=== PATIENT | male | born 1945 | race Caucasian/White ===

== ENCOUNTER → 2019-05-09 | Outpatient (CLI) | payer MEDICARE ==
--- NOTE | 2019-05-09 12:45 | MR ---
EXAMINATION TYPE: MR lumbar spine wo con DATE OF EXAM: 05/09/2019 COMPARISON: None HISTORY: Spinal stenosis, lumbar region TECHNIQUE: Multiplanar, multisequence images of the lumbar spine were acquired. FINDINGS: The lumbar spine vertebral bodies maintain normal vertebral body heights and alignment. Mul tilevel disc desiccation is seen. Conus medullaris is unremarkable in signal and morphology. Bone mar row signal is within normal limits. Generalized mild atrophy of the paraspinal musculature is noted. T12-L1: There is a right eccentric disc bulge with annular tear without spinal canal stenosis or neur al foraminal narrowing. L1-L2: There is a broad-based disc bulge and mild facet arthropathy without spinal canal stenosis nor neural foraminal narrowing. L2-L3: There is a broad-based disc bulge, ligamentum flavum buckling and facet arthropathy resulting in mild bilateral neural foraminal narrowing, left slightly greater than right without spinal canal s tenosis. L3-L4: There is a small central disc herniation with 3 mm caudal extrusion and left paracentral annul ar tear. This is superimposed upon a broad-based disc bulge with facet arthropathy and ligamentum fla vum buckling creating moderate bilateral neural foraminal narrowing. This also creates overall modera te spinal canal stenosis with narrowing and both in anterior posterior dimension and transverse dimen ivanna. Disc abuts the nerve roots. L4-L5: There is a large broad-based disc bulge, facet arthropathy and ligamentum flavum buckling crea ting moderate bilateral neural foraminal narrowing and mild spinal canal stenosis in a transverse dim ension. The disc abuts the exiting nerve roots. L5-S1: There is a very small central disc herniation and small projecting osteophyte of the inferior endplate of L5 without spinal canal stenosis or neural foraminal narrowing. Mild facet arthropathy is seen. IMPRESSION: 1. Small central disc herniation at L3-L4 with 3 mm caudal disc extrusion in combination with facet a rthropathy and ligamentum flavum buckling create moderate bilateral neural from narrowing and moderat e spinal canal stenosis. There is contact of the disc with the exiting L3 nerve roots. 2. Large broad-based disc bulge at L4-L5 in combination with facet hypertrophy and ligamentum flavum buckling create mild spinal canal stenosis and moderate bilateral neural foraminal narrowing. The dis c also abuts the exiting L4 nerve roots at this level. 3. Moderate multilevel degenerative disc disease within the remaining lumbar spine vertebral levels. Very small disc herniation is also seen at L5-S1 without spinal canal stenosis or neural foraminal na rrowing.
== END | disposition home or self-care (01) ==
LOC: RADMRIMAIN 10:47
DX: M48.061 Spinal stenosis, lumbar region without neurogenic claudication (principal); M51.26 Other intervertebral disc displacement, lumbar region; M51.36 Other intervertebral disc degeneration, lumbar region
CPT/HCPCS: 72148

== ENCOUNTER → 2020-11-13 | Outpatient (CLI) | payer MEDICARE ==
[2020-11-13 09:09] LABS: Basophils # (A) 0.1 k/uL (0-0.2); Basophils % (A) 1 %; Eosinophils # (A) 0.2 k/uL (0-0.7); Eosinophils % (A) 3 %; HCT 49.2 % (39.0-53.0); HGB 16.4 gm/dL (13.0-17.5); Lymphocytes # (A) 1.5 k/uL (1.0-4.8); Lymphocytes % (A) 23 %; MCH 30.2 pg (25.0-35.0); MCHC 33.3 g/dL (31.0-37.0); MCV 90.8 fL (80.0-100.0); Mean Platelet Volume 7.9; Monocytes # (A) 0.3 k/uL (0-1.0); Monocytes % (A) 5 %; Neutrophils # (A) 4.1 k/uL (1.3-7.7); Neutrophils % (A) 65 %; Platelet Count 162 k/uL (150-450); RBC 5.42 m/uL (4.30-5.90); WBC 6.3 k/uL (3.8-10.6)
[2020-11-13 12:34] LABS: Glucose 2 Hour 114 mg/dL
[2020-11-13 15:13] LABS: African American GFR (CKD) 74.7 (60.0-200.0); Non-African American GFR(CKD) 64.4 (60.0-200.0)
[2020-11-14 13:07] LABS: Albumin 3.91 g/dL (3.80-4.90); Gamma Globulin 0.68 g/dL (0.70-1.50)
== END | disposition home or self-care (01) ==
LOC: LABWHC1 08:34
PROVIDERS: ATTEND Psychiatry & Neurology Neurology
DX: G62.9 Polyneuropathy, unspecified (principal)
CPT/HCPCS: 36415; 82175; 82565; 82570; 82607; 82947; 82950; 83655; 83825; 84165; 84207; 84425; 84443; 84520; 85025; 86334

== ENCOUNTER → 2020-12-03 | Outpatient (CLI) | payer MEDICARE ==
--- NOTE | 2020-12-03 07:28 | MR ---
EXAMINATION TYPE: MR cspine/lspine wo con DATE OF EXAM: 12/03/2020 COMPARISON: MRI lumbar spine May 09, 2019 HISTORY: Paresthesia of bilateral lower extremity, imbalance, left upper extremity incoordination, al l per order. Back pain causing numbness or neuropathy in both feet per patient TECHNIQUE: Multiplanar, multisequence imaging of the cervical and lumbar spine are performed without IV contrast. FINDINGS: Cervical spine: Sagittal images of the cervical spine show the craniocervical junction to appear within normal limits . The cervical and upper thoracic spinal cord is normal in course, caliber, and signal. Slight grade 1 listhesis C6 on C7. The vertebral body heights are normal. Moderate disc space narrowing C5-C6 l evel. Mild disc space narrowing C6-C7 level. Mild multilevel anterior spurring. Heterogeneous Modic t ype II endplate changes anterior C6-C7 level. Axial images show C2-C3 level to appear within normal limits. Axial images at C3-C4 level show uncovertebral facet degenerative changes bilaterally greater on the left causing moderate to advanced left and mild to moderate right-sided neural foraminal narrowing. Axial images at C4-C5 level showed broad based central disc protrusion effacing anterior thecal sac n early up to ventral surface of spinal cord with additional foraminal spur disc components causing josephine rly moderate bilateral neural foraminal narrowing. Axial images at C5-C6 level shows a broad-based spur disc complex effacing anterior thecal sac and ca using moderate bilateral neural foraminal narrowing. Axial images at C6-C7 level showed broad based right paracentral disc protrusion effacing anterolater al thecal sac and causing mild bilateral neural foraminal narrowing. Axial images at C7-T1 level are within normal limits. IMPRESSION: Spondylolisthesis C6-C7 level. Multilevel degenerative changes at C3-C4 through C6-C7 lev el as detailed above. Lumbar spine: Sagittal images of the lumbar spine show vertebral body heights to remain satisfactory. Slight grade 1 retrolisthesis of L2 on L3 and L3 on L4 redemonstrated. Multilevel disc desiccation again seen. Th e conus medullaris is stable in position and signal ending inferior T12 level. [id number] multi level spurring with heterogeneity throughout the bone marrow. Axial images show T12-L1 level to appear within normal limits. Axial images at L1-L2 level redemonstrates stable mild broad disc bulge minimally effacing the anteri or thecal sac. Axial images at L2-L3 level demonstrate moderate broad-based posterior disc protrusion effacing anter ior thecal sac and mild facet arthropathy bilaterally causing mild bilateral neural foraminal narrowi ng. No significant change from prior. Axial images at L3-L4 level demonstrates spondylolisthesis with moderate facet arthropathy and ligame ntum flavum hypertrophy effacing posterolateral thecal sac greater on the right. There is moderate br oad disc bulge with right paracentral disc protrusion component effacing the anterior thecal sac. The re is moderate to advanced right-sided neural foraminal narrowing and mild/moderate left-sided neural foraminal narrowing redemonstrated. Slight interval degenerative progression noted at this level. Axial images at L4-L5 level redemonstrate moderate facet degenerative changes bilaterally. There is m oderate to large broad-based posterior disc protrusion redemonstrated. There is mild effacement of th e anterior thecal sac. There is moderate bilateral neural foraminal narrowing. Disc abuts the exiting right L4 nerve sagittal image 13 similar to prior and to lesser degree inferior aspect left L4 nerve sagittal image 2 similar to the prior. Axial images at L5-S1 level shows central disc protrusion and annular tear with mild to moderate face t arthropathy bilaterally. Spinal canal preserved. Patent bilateral neural foramina. Central thin-walled parapelvic cyst suspected in the left kidney similar to prior. IMPRESSION: Multilevel of spondylolisthesis and degenerative changes greatest in the mid to lower lum bar spine as detailed above. Some interval degenerative progression thought present at L3-L4 level.
== END | disposition home or self-care (01) ==
LOC: RADMRIMAIN 06:05
PROVIDERS: ATTEND Psychiatry & Neurology Neurology
DX: M43.12 Spondylolisthesis, cervical region (principal); M43.16 Spondylolisthesis, lumbar region; M47.812 Spondylosis without myelopathy or radiculopathy, cervical region; M47.816 Spondylosis without myelopathy or radiculopathy, lumbar region
CPT/HCPCS: 72141; 72148

== ENCOUNTER → 2020-12-06 | Outpatient (CLI) | payer MEDICARE ==
--- NOTE | 2020-12-06 13:26 | MR ---
EXAMINATION TYPE: MR brain wo/w con DATE OF EXAM: 12/06/2020 COMPARISON: 08/10/2011 HISTORY: Imbalance; loss of coordination; paresthesia CONTRAST: Standard multiplanar, multisequence MRI departmental protocol utilizing 9 mL intravenous Gadavist marry olinium contrast. There is diffuse cerebral cortical atrophy. There is no mass effect nor midline shift. There is no si gn of intracranial hemorrhage. Diffusion images show no evidence of an acute infarct. There are scatt ered areas of increased signal on the T2 and FLAIR images around the lateral ventricles. There also s mall foci at the hines-white matter junction of both cerebral hemispheres. This is likely related to m ild chronic small vessel ischemia. These measure up to 6 mm and total number is less than 10. The bra instem is intact. There is no evidence of a posterior fossa mass. The contrast images show no patholo gic enhancement. There is normal enhancement of the venous sinuses. There is no evidence of posterior fossa mass. IMPRESSION: Cerebral atrophy. There are a few white matter foci of increased signal consistent with mild chronic small vessel ischemia. This appears not significantly different than old exam.
== END | disposition home or self-care (01) ==
LOC: RADMRIMAIN 09:36
PROVIDERS: ATTEND Psychiatry & Neurology Neurology
DX: R90.82 White matter disease, unspecified (principal); G31.1 Senile degeneration of brain, not elsewhere classified; I67.82 Cerebral ischemia; R26.89 Other abnormalities of gait and mobility; R20.2 Paresthesia of skin
CPT/HCPCS: 70553; A9585

== ENCOUNTER → 2021-10-09 | Outpatient (CLI) | payer MEDICARE ==
--- NOTE | 2021-10-09 13:29 | XR ---
EXAMINATION TYPE: XR chest 2V, XR ribs 4 views RT DATE OF EXAM: 10/09/2021 COMPARISON: None HISTORY: 75-year-old male R07.81, right rib pain. FINDINGS: Chest: Heart limits of normal in size. Aorta and bony vasculature within normal limits. Some strandy atelectasis in the lower lungs. No consolidation, pneumothorax, or pleural effusion. Right RIBS: Moderate degenerative change at AC joint with marginal spurring and joint space narrowing . No displaced right rib fracture seen. IMPRESSION: No displaced right rib fractures seen. Some strandy areas of atelectasis in the lower lungs. No acute cardiopulmonary process.
== END | disposition home or self-care (01) ==
LOC: RADXRMAIN 12:05
PROVIDERS: ATTEND Family Medicine
DX: J98.11 Atelectasis (principal); R07.81 Pleurodynia
CPT/HCPCS: 71046

== ENCOUNTER 2024-03-09 14:36 | Emergency (ER) | payer MEDICARE ==
[2024-03-09] MEDS: HYDROcodone/APAP 7.5-325MG 1 EACH TAB PO ONE (15:07)
[2024-03-09 15:22] LABS: Basophils # (A) 0.1 k/uL (0-0.2); Basophils % (A) 1 %; Eosinophils # (A) 0.3 k/uL (0-0.7); Eosinophils % (A) 4 %; HCT 44.6 % (39.0-53.0); HGB 15.1 gm/dL (13.0-17.5); Lymphocytes # (A) 1.9 k/uL (1.0-4.8); Lymphocytes % (A) 24 %; MCH 30.6 pg (25.0-35.0); MCHC 33.9 g/dL (31.0-37.0); MCV 90.1 fL (80.0-100.0); Mean Platelet Volume 7.6; Monocytes # (A) 0.4 k/uL (0-1.0); Monocytes % (A) 5 %; Neutrophils # (A) 5.1 k/uL (1.3-7.7); Neutrophils % (A) 65 %; Platelet Count 164 k/uL (150-450); RBC 4.94 m/uL (4.30-5.90); RDW 12.6 % (11.5-15.5); WBC 7.9 k/uL (3.8-10.6)
--- NOTE | 2024-03-09 15:31 | ED ---
Extremity Problem HPI - General Chief complaint: Extremity Problem,Nontraumatic Stated complaint: L wrist swollen Time Seen by Provider: 03/09/24 14:48 Source: patient, RN notes reviewed Mode of arrival: ambulatory Limitations: no limitations - History of Present Illness Initial comments: This is an 78 year old male who presents to the emergency department for left wrist pain and swelling. Patient noticed generalized discomfort in the wrist and arm going up to the elbow for most of the day today. When he took his coat off, he noticed that his left wrist was very swollen. States that this continues to be painful as well. Denies any injuries. 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 Denies any history of similar symptoms in the past. Denies any fever/chills. MD Complaint: extremity pain, extremity swelling - Related Data Previous Rx's Medication Instructions Recorded predniSONE 50 mg PO DAILY 5 Days #5 tab 03/09/24 Allergies Allergy/AdvReac Type Severity Reaction Status Date / Time No Known Allergies Allergy Verified 03/09/24 14:45 Review of Systems ROS Statement: Those systems with pertinent positive or pertinent negative responses have been documented in the HPI. ROS Other: All systems not noted in ROS Statement are negative. Past Medical History Past Medical History: Cancer, Prostate Disorder Additional Past Medical History / Comment(s): Neuropathy History of Any Multi-Drug Resistant Organisms: None Reported Past Surgical History: Heart Catheterization With Stent Additional Past Surgical History / Comment(s): Prostate CA Past Psychological History: No Psychological Hx Reported Smoking Status: Never smoker Past Alcohol Use History: None Reported Past Drug Use History: None Reported General Exam Limitations: no limitations General appearance: alert, in no apparent distress Head exam: Present: atraumatic, normocephalic, normal inspection Respiratory exam: Present: normal lung sounds bilaterally. Absent: respiratory distress, wheezes, rales, rhonchi, stridor Cardiovascular Exam: Present: regular rate, normal rhythm, normal heart sounds. Absent: systolic murmur, diastolic murmur, rubs, gallop, clicks Extremities exam: Present: other (Diffuse swelling to the left wrist with overlying tenderness. No erythema or warmth. 2+ radial pulses.) Neurological exam: Present: alert, oriented X3, CN II-XII intact Psychiatric exam: Present: normal affect, normal mood Skin exam: Present: warm, dry, intact, normal color. Absent: rash Course Vital Signs 03/09/24 03/09/24 14:42 16:46 Temperature 98.2 F 97.9 F Pulse Rate 61 70 Respiratory 20 18 Rate Blood Pressure 132/69 126/86 O2 Sat by Pulse 98 99 Oximetry Medical Decision Making - Medical Decision Making This is an 78 year old male who presents to the emergency department for left wrist pain and swelling. Was pt. sent in by a medical professional or institution? @ -No Did you speak to anyone other than the patient for history? @ -No Did you review nursing and triage notes? @ -Yes, and I agree, it is accurate with regards to the patient's symptoms. Were old charts reviewed? @ -No Differential Diagnosis? @ -Differential Musculoskeletal: Muscular strain, contusion, ligament sprain, fracture, arthritis, septic arthritis, bursitis, cellulitis, muscle spasm, nerve compression, DVT, arterial occlusion, herpes zoster, electrolyte abnormality, tumor.... This is not meant to be in all inclusive list EKG interpreted by me (3pts min.)? @ -Not obtained X-rays interpreted by me (1pt min.)? @ -X-ray of the left wrist obtained. My interpretation identifies no acute fractures. CT interpreted by me (1pt min.)? @ -Not obtained U/S interpreted by me (1pt. min.)? @ -Not obtained What testing was considered but not performed? (CT, X-rays, U/S, labs)? Why? @ -None What meds were considered but not given? Why? @ -None Did you discuss the management of the patient with other professionals? @ -No Did you reconcile home meds? @ -No Was smoking cessation discussed for >3mins.? @ -No Was critical care preformed (if so, how long)? @ -No Were there social determinants of health that impacted care today? How? (Homelessness, low income, unemployed, alcoholism, drug addiction, hernnadez sportation, low edu. Level, literacy, decrease access to med. care, nursing home, rehab)? @ -No Was there de-escalation of care discussed even if they declined? (Discuss DNR or withdrawal of care, Hospice)? @ -No What co-morbidities impacted this encounter? (DM, HTN, Smoking, COPD, CAD, Cancer, CVA, Hep., AIDS, mental health diagnosis, sleep apnea, morbid obesity)? @ -None Was patient admitted / discharged? @ -Discharged. Lab work unremarkable. X-ray of the left wrist demonstrates marked abnormality of the trapezium and first metacarpal joint. This raises questions of remote trauma. Patient denies any prior injuries to this area. Swelling is essentially all localized around the wrist region. There is no erythema or heat. Uric acid and rheumatoid factor ordered with results pending at the time of discharge. Symptoms may be related to an overuse injury, arthritis, or inflammation. There is no evidence of infection due to lack of erythema, warmth, and unremarkable lab work. Prescription for prednisone provided with dosing instructions reviewed. Patient discharged home in stable condition and advised close follow-up with his primary care provider. Undiagnosed new problem with uncertain prognosis? @ -None Drug Therapy requiring intensive monitoring for toxicity (Heparin, Nitro, Insulin, Cardizem)? @ -None Were any procedures done? @ -None Diagnosis/symptom? @ -Left wrist swelling Acute, or Chronic, or Acute on Chronic? @ -Acute Uncomplicated (without systemic symptoms) or Complicated (systemic symptoms)? @ -Uncomplicated Side effects of treatment? @ -None Exacerbation, Progression, or Severe Exacerbation] @ -Not applicable Poses a threat to life or bodily function? @ -No Return precautions reviewed in depth, the patient is instructed to return to the emergency department with any new, worsening, or concerning symptoms. Patient verbalized understanding. This case was discussed in detail with the attending ED physician, Dr. Wilson. Presentation, findings, and treatment plan discussed in detail as well. - Lab Data Result diagrams: 03/09/24 15:14 03/09/24 15:14 Lab Results 03/09/24 03/09/24 03/09/24 Range/Units 15:14 15:14 15:14 WBC 7.9 (3.8-10.6) k/uL RBC 4.94 (4.30-5.90) m/uL Hgb 15.1 (13.0-17.5) gm/dL Hct 44.6 (39.0-53.0) % MCV 90.1 (80.0-100.0) fL MCH 30.6 (25.0-35.0) pg MCHC 33.9 (31.0-37.0) g/dL RDW 12.6 (11.5-15.5) % Plt Count 164 (150-450) k/uL MPV 7.6 Neutrophils % 65 % Lymphocytes % 24 % Monocytes % 5 % Eosinophils % 4 % Basophils % 1 % Neutrophils # 5.1 (1.3-7.7) k/uL Lymphocytes # 1.9 (1.0-4.8) k/uL Monocytes # 0.4 (0-1.0) k/uL Eosinophils # 0.3 (0-0.7) k/uL Basophils # 0.1 (0-0.2) k/uL Sodium 139 (137-145) mmol/L Potassium 4.0 (3.5-5.1) mmol/L Chloride 109 H (98-107) mmol/L Carbon Dioxide 23 (22-30) mmol/L Anion Gap 7 mmol/L BUN 26 H (9-20) mg/dL Creatinine 0.82 (0.66-1.25) mg/dL Est GFR (CKD-EPI)AfAm >90 (>60 ml/min/1.73 sqM) Est GFR (CKD-EPI)NonAf 84 (>60 ml/min/1.73 sqM) Glucose 148 H (74-99) mg/dL Plasma Lactic Acid Aydin 1.4 (0.7-2.0) mmol/L Uric Acid (3.5-8.5) mg/dL Calcium 9.1 (8.4-10.2) mg/dL Total Bilirubin 1.4 H (0.2-1.3) mg/dL AST 29 (17-59) U/L ALT 31 (4-49) U/L Alkaline Phosphatase 102 (38-126) U/L C-Reactive Protein <0.5 (<1.0) mg/dL Total Protein 6.3 (6.3-8.2) g/dL Albumin 4.0 (3.5-5.0) g/dL 03/09/24 Range/Units 15:14 WBC (3.8-10.6) k/uL RBC (4.30-5.90) m/uL Hgb (13.0-17.5) gm/dL Hct (39.0-53.0) % MCV (80.0-100.0) fL MCH (25.0-35.0) pg MCHC (31.0-37.0) g/dL RDW (11.5-15.5) % Plt Count (150-450) k/uL MPV Neutrophils % % Lymphocytes % % Monocytes % % Eosinophils % % Basophils % % Neutrophils # (1.3-7.7) k/uL Lymphocytes # (1.0-4.8) k/uL Monocytes # (0-1.0) k/uL Eosinophils # (0-0.7) k/uL Basophils # (0-0.2) k/uL Sodium (137-145) mmol/L Potassium (3.5-5.1) mmol/L Chloride (98-107) mmol/L Carbon Dioxide (22-30) mmol/L Anion Gap mmol/L BUN (9-20) mg/dL Creatinine (0.66-1.25) mg/dL Est GFR (CKD-EPI)AfAm (>60 ml/min/1.73 sqM) Est GFR (CKD-EPI)NonAf (>60 ml/min/1.73 sqM) Glucose (74-99) mg/dL Plasma Lactic Acid Aydin (0.7-2.0) mmol/L Uric Acid 6.0 (3.5-8.5) mg/dL Calcium (8.4-10.2) mg/dL Total Bilirubin (0.2-1.3) mg/dL AST (17-59) U/L ALT (4-49) U/L Alkaline Phosphatase (38-126) U/L C-Reactive Protein (<1.0) mg/dL Total Protein (6.3-8.2) g/dL Albumin (3.5-5.0) g/dL - Radiology Data Radiology results: report reviewed, image reviewed Disposition Clinical Impression: Swelling of left wrist Disposition: HOME SELF-CARE Instructions (If sedation given, give patient instructions): Swollen Joint (ED) Additional Instructions: Return to the emergency department with any new, worsening, or concerning symptoms. Take the prednisone daily for 5 days. Take this with Tylenol. You can use a wrist brace or Paul bandage to wrap the wrist. Follow up with your primary care provider in 1-2 days. Prescriptions: predniSONE 50 mg PO DAILY 5 Days #5 tab Is patient prescribed a controlled substance at d/c from ED?: No Referrals: Chung Sandhu DO [Primary Care Provider] - 1-2 days Time of Disposition: 16:35
[2024-03-09 15:41] LABS: ALT 31 U/L (4-49); AST 29 U/L (17-59); African American GFR (CKD) >90 (>60 ml/min/1.73 sqM); Alkaline Phosphatase 102 U/L (38-126); Anion Gap 7 mmol/L; Blood Urea Nitrogen 26 mg/dL (9-20); C Reactive Protein <0.5 mg/dL (<1.0); Calcium 9.1 mg/dL (8.4-10.2); Carbon Dioxide 23 mmol/L (22-30); Chloride 109 mmol/L (98-107); Glucose 148 mg/dL (74-99); Non-African American GFR(CKD) 84 (>60 ml/min/1.73 sqM); Sodium 139 mmol/L (137-145); Total Bilirubin 1.4 mg/dL (0.2-1.3); Total Protein 6.3 g/dL (6.3-8.2)
--- NOTE | 2024-03-09 15:46 | XR ---
Left wrist. HISTORY: Pain without trauma COMPARISON: None TECHNIQUE: 4 views left wrist are obtained. FINDINGS: There is no acute fracture or dislocation. There are multiple small well-corticated calcifications in the soft tissues adjacent to the proximal aspect of the first metacarpal. The cortical margin of the proximal first metacarpal is irregular and partially sclerotic. The trapezium is not well delineated with the findings raise the question of pr ior remote trauma. CT of the wrist would be useful for further evaluation on a nonemergent basis. The remaining carpal bones and articulations are normal.. IMPRESSION: Marked abnormality of the trapezium and first carpometacarpal joint described above. The findings trujillo se the question of remote trauma. CT of the wrist on a nonemergent basis might be useful for further evaluation.
[2024-03-09] MEDS: KETOROLAC 15 MG/ML 1 ML VIAL IM STA (15:51)
[2024-03-09] MEDS: ACET/COD 300 MG/30 MG STARTER PACK 6 TAB BTL PO STA (16:39)
[2024-03-09] MEDS: DEXAMETHASONE SOD PHOSPHATE 10 MG/ML 1 ML VIAL IM STA (16:40)
[2024-03-09 16:59] VITALS: BP 126/86; PULSE 70; RESP 18; TEMP 97.9
== END 2024-03-09 16:48 | disposition home or self-care (01) ==
LOC: EC 14:36
DX: M25.432 Effusion, left wrist (principal)
CPT/HCPCS: 36415; 80053; 83605; 84550; 85025; 86140; 86431; 73110; 99283; 96372; J1100

== ENCOUNTER → 2024-07-05 | Outpatient (CLI) | payer MEDICARE | END | disposition home or self-care (01) | LOC: LABPRL 12:48 | PROVIDERS: ATTEND Family Medicine | DX: E11.9 Type 2 diabetes mellitus without complications (principal) | CPT/HCPCS: 82043; 82570 ==

== ENCOUNTER → 2024-09-18 | Outpatient (CLI) | payer MEDICARE ==
--- NOTE | 2024-09-20 05:12 | MR ---
EXAMINATION TYPE: MR knee LT wo con DATE OF EXAM: 09/18/2024 COMPARISON: NONE HISTORY: Left knee medial pain TECHNIQUE: Multiplanar, multisequence images of the knee is performed without IV contrast. FINDINGS: MEDIAL MENISCUS: Fraying of the posterior horn with abnormal signal extending to inferior articular s urface. LATERAL MENISCUS: Anterior and posterior horns are intact without tear. CRUCIATE LIGAMENTS: The anterior and posterior cruciate ligaments are intact and unremarkable. COLLATERAL LIGAMENTS: The medial collateral ligament and lateral collateral ligament complex are inta ct. Mild fluid signal surrounds the medial collateral ligament. EXTENSOR MECHANISM: Visualized quadriceps and patellar tendons are intact. EFFUSION: No significant suprapatellar joint effusion. POPLITEAL CYST: Tiny popliteal/torres cyst. TRICOMPARTMENT SPACES: Mild to moderate tricompartment joint space loss with mild spurring. CARTILAGE: Chondromalacia patella with some cartilaginous loss and fissuring patellofemoral compartme nt. There is additional cartilaginous loss medial tibiofemoral compartment. BONE MARROW SIGNAL: Some areas of increased T2 signal along the posterior patellar pole at sites of c artilaginous loss.. OTHER: Mild Diffuse subcutaneous edema. IMPRESSION: 1. Full-thickness tear posterior horn medial meniscus. 2. Mild MCL sprain injury. 3. Tricompartment degenerative changes at least moderate in appearance patellofemoral compartment as detailed above. 4. Tiny popliteal cyst. [facility], , 09/20/2024 5:10 AM
== END | disposition home or self-care (01) ==
LOC: RADMRIMAIN 18:07
PROVIDERS: ATTEND Orthopaedic Surgery